=== PATIENT | female | born 1965 | race Caucasian/White ===

== ENCOUNTER 2023-09-09 16:03 | Outpatient (CLI) | payer MEDICAID | END 2023-09-09 23:59 | disposition home or self-care (01) | LOC: RAD 16:03 | PROVIDERS: ATTEND Podiatrist | DX: Z09 Encounter for follow-up examination after completed treatment for conditions other than malignant neoplasm (principal); M79.89 Other specified soft tissue disorders; Z98.890 Other specified postprocedural states; Z96.661 Presence of right artificial ankle joint | CPT/HCPCS: 73700 ==